=== PATIENT | male | born 1970 ===

== ENCOUNTER 2018-02-07 10:03 | Inpatient (IN) | payer OTHER ==
[~2018-02-07] VITALS: Ht 175.3 cm; Wt 98.4 kg
[~2018-02-07 10:03] MED LIST: AMOX500 PO; BISA5EC PO; HYDACE5; HYDACE5 PO; PENVK500 PO; PSEU30; RXAMOX500 PO; RXNEOPOLHC AD; RXPENVK250 PO; SULTRIDS PO
[2018-02-07 10:25] LABS: Calcium, Ionized (POC) 1.03 mmol/L (1.10-1.46); Chloride (POC) 101 mmol/L (98-108); Creatinine (POC) 1.1 mg/dL (0.8-1.3); Glucose (ISTAT POC) 128 mg/dL (70-99); Hemoglobin (POC) 16.7 g/dL (13.5-17.5); Potassium (POC) 3.6 mmol/L (3.5-5.5); Sodium (POC) 139 mmol/L (135-148); Total CO2 (POC) 24 mmol/L (21-32)
[2018-02-07 10:29] LABS: Hematocrit 46.8 % (37.0-53.0); Hemoglobin 15.6 g/dL (13.5-17.5); Mean Corpuscular HGB 26.6 pg (26.0-34.0); Mean Corpuscular HGB Conc 33.3 g/dL (31.5-36.5); Mean Corpuscular Volume 80 fL (80-100); Mean Platelet Volume 9.9 fL (9.1-12.4); Platelet Count 245 K/mm3 (150-400); RDW Coefficient Variation 14.6 % (11.7-14.2); RDW Standard Deviation 42.7 fL (35.1-46.3); Red Blood Cell Count 5.86 M/mm3 (4.30-5.90); White Blood Cell Count 8.64 K/mm3 (4.00-11.30)
[2018-02-07 10:42] LABS: International Normalized Ratio 1.05; Prothrombin Time Results 10.8 Sec (9.7-11.5)
[2018-02-07 10:53] LABS: Alanine Aminotransfer (ALT/SGP 28 U/L (12-78); Alk Phos 80 U/L (50-136); Anion Gap 8 mmol/L (6-16); Aspartate Aminotrans (AST/SGOT 20 U/L (12-37); Bilirubin, Total 0.7 mg/dL (0.1-1.0); Blood Urea Nitrogen 16 mg/dL (8-24); Bun/Creatinine Ratio 14.2 (12.0-20.0); CHOL/HDL RATIO 6.8; CO2, Blood 26 mmol/L (21-32); Calcium, Blood 8.5 mg/dL (8.5-10.1); Chloride, Blood 104 mmol/L (98-108); Cholesterol 191 mg/dL (50-200); Creatinine, Blood 1.13 mg/dL (0.60-1.20); Globulin, Blood 4.2 g/dL (2.2-4.0); Glomerular Filtration Rate >60 (60-); Glucose, Blood 122 mg/dL (70-99); HDL Cholesterol 28 mg/dL (>39); LDL/HDL RATIO 3.5; Low Density Lipoprotein Chol 99 mg/dL (0-110); Magnesium, Blood 2.3 mg/dL (1.6-2.4); Potassium, Blood 3.6 mmol/L (3.5-5.5); Sodium, Blood 138 mmol/L (136-145); Total Protein, Blood 8.2 g/dL (6.4-8.2); Triglycerides 322 mg/dL (30-160); Very Low Density Lipoprot Chol 64 mg/dL (6-32)
[2018-02-07 10:54] LABS: Troponin I <0.015 ng/mL (0.000-0.040)
[2018-02-07] MEDS ORDERED: Cialis20 MG PO (11:47)
[2018-02-07 12:19] LABS: Troponin I 24.2 ng/mL (0.000-0.040)
[2018-02-07] MEDS ORDERED: Flomax0.4 MG PO (12:20)
[2018-02-07 12:42] LABS: Creatine Kinase MB 80.2 ng/mL (0.0-3.6); Creatine Kinase MB Index 4.6 (0.0-4.0)
[2018-02-07 22:25] LABS: Creatine Kinase MB 232.3 ng/mL (0.0-3.6); Creatine Kinase MB Index 7.3 (0.0-4.0)
[2018-02-08 05:05] LABS: Anion Gap 7 mmol/L (6-16); Blood Urea Nitrogen 12 mg/dL (8-24); Bun/Creatinine Ratio 12.1 (12.0-20.0); CO2, Blood 24 mmol/L (21-32); Calcium, Blood 7.5 mg/dL (8.5-10.1); Chloride, Blood 107 mmol/L (98-108); Creatinine, Blood 0.99 mg/dL (0.60-1.20); Glomerular Filtration Rate >60 (60-); Glucose, Blood 122 mg/dL (70-99); Sodium, Blood 138 mmol/L (136-145)
[2018-02-08 05:47] LABS: CPK Creatine Kinase 1955 U/L (39-308)
[2018-02-08 06:06] LABS: Creatine Kinase MB 138.2 ng/mL (0.0-3.6); Creatine Kinase MB Index 7.1 (0.0-4.0)
[2018-02-08] MEDS ORDERED: TADA10TA PO (13:19)
[2018-02-08] MEDS ORDERED: TAMS.4ER PO (13:20)
[2018-02-08] MEDS ORDERED: ASPI325 PO (13:20)
[2018-02-08] MEDS ORDERED: ATOR40TA PO (13:21)
[2018-02-08] MEDS ORDERED: CLOP75 PO (13:22)
[2018-02-08] MEDS ORDERED: Prinivil5 MG PO (13:23)
[2018-02-08] MEDS ORDERED: METO25 PO (13:25)
== END 2018-02-08 13:57 | disposition home or self-care (01) | DRG 246 ==
LOC: ER 10:03 → ICUW 10:19
PROVIDERS: Emergency Medicine; Internal Medicine Interventional Cardiology
PROC: 027135Z Dilation of Coronary Artery, Two Arteries with Two Drug-eluting Intraluminal Devices, Percutaneous Approach (ICD-10-PCS; principal; 2018-02-07)
PROC: 5A2204Z Restoration of Cardiac Rhythm, Single (ICD-10-PCS; 2018-02-07)
PROC: B241ZZ3 Ultrasonography of Multiple Coronary Arteries, Intravascular (ICD-10-PCS; 2018-02-07)
PROC: B2111ZZ Fluoroscopy of Multiple Coronary Arteries using Low Osmolar Contrast (ICD-10-PCS; 2018-02-07)
DX: I21.19 ST elevation (STEMI) myocardial infarction involving other coronary artery of inferior wall (principal); I49.01 Ventricular fibrillation; I10 Essential (primary) hypertension; R73.03 Prediabetes; E78.5 Hyperlipidemia, unspecified; E78.1 Pure hyperglyceridemia; F10.21 Alcohol dependence, in remission; F17.210 Nicotine dependence, cigarettes, uncomplicated; Z88.8 Allergy status to other drugs, medicaments and biological substances
CPT/HCPCS: 36415; 80047; 80048; 80053; 80061; 82550; 82553; 83735; 84484; 85014; 85027; 85610; 85730; 86850; 86900; 86901; 92978; 92979; 93005; 93010; 93306; 93454; 99152; 99153; 99285-25; C1725; C1753; C1769; C1874; C1894; C9600; C9606; J0282; J1644; J2060; J2250; J3010; J3475; J7030; Q9967

== ENCOUNTER 2022-01-03 08:50 | Inpatient (IN) | payer OTHER ==
[~2022-01-03] VITALS: Ht 175.3 cm; Wt 90.1 kg
[~2022-01-03 08:50] MED LIST changes: +ASPI325 PO; +ATOR40TA PO; +CLOP75 PO; +Cialis20 MG PO; +Flomax0.4 MG PO; +METO25 PO; +Prinivil5 MG PO; +TADA10TA PO; +TAMS.4ER PO
[2022-01-03 09:13] LABS: Hematocrit 47.1 % (37.0-53.0); Hemoglobin 15.4 g/dL (13.5-17.5); Mean Corpuscular HGB 26.6 pg (26.0-34.0); Mean Corpuscular HGB Conc 32.7 g/dL (31.5-36.5); Mean Corpuscular Volume 81 fL (80-100); Mean Platelet Volume 10.3 fL (9.1-12.4); Platelet Count 309 K/mm3 (150-400); RDW Coefficient Variation 14.6 % (11.7-14.2); RDW Standard Deviation 42.4 fL (35.1-46.3); White Blood Cell Count 7.68 K/mm3 (4.00-11.30)
[2022-01-03 09:29] LABS: International Normalized Ratio 0.99; Prothrombin Time Results 10.4 Sec (9.7-11.5)
[2022-01-03 09:32] LABS: Magnesium, Blood 2.2 mg/dL (1.6-2.4)
[2022-01-03 09:33] LABS: Albumin, Blood 3.7 g/dL (3.4-5.0); Albumin/Globulin Ratio 0.9 (0.8-1.8); Bilirubin, Total 0.5 mg/dL (0.1-1.0); Calcium, Blood 8.6 mg/dL (8.5-10.1); Potassium, Blood 3.5 mmol/L (3.5-5.5); Total Protein, Blood 7.7 g/dL (6.4-8.2)
[2022-01-03 12:23] LABS: Influenza A, PCR NEGATIVE (NEGATIVE); Influenza B, PCR NEGATIVE (NEGATIVE); Resp Syncytial Virus, PCR NEGATIVE (NEGATIVE)
[2022-01-03 12:30] LABS: SARS-Cov-2 (COVID-19) PCR, MMC POSITIVE (NEGATIVE)
--- NOTE | 2022-01-03 13:00 | NUR ---
PT TO ICU ROOM 3 FROM [facility] @ 6676. PT ALERT AND ORIENTED, DENIES CHEST PAIN/SHORTNESS OF BREATH ON ARRIVAL. PT SINUS LOC WITH HR 40-60'S. BLOOD PRESSURE WNL. RIGHT RADIAL ACCESS SITE, 15 CC AIR. SITE SOFT/NONTENDER, NO HEMATOMA, DISTAL PULSES/PALLOR WNL. PT REPORTS NONCOMPLIANCE WITH MEDICATIONS D/T "LOSING INSURANCE" SEVERAL YEARS AGO. THIS NURSE OFFERED ASSISTANCE TO FILL OUT INSURANCE PAPERWORK, PT'S FIANCE STATES PT HAS "OHP" BUT THAT HE HASN'T FOLLOWED UP ON APPOINTMENTS. PT APPEARS UNINTERESTED IN MAKING LIFESTYLE/DIETARY CHANGES AT THIS TIME. DIETARY CONSULT PLACED. SEE ADMISSION ASSESSMENT.
[2022-01-03 13:05] LABS: BASOPHILS ABSOLUTE AUTO 0.01 K/mm3 (0.00-0.23); BASOPHILS PERCENT AUTO 0 % (0-2); EOSINOPHILS ABSOLUTE AUTO 0.01 K/mm3 (0.00-0.68); EOSINOPHILS PERCENT AUTO 0 % (0-6); Hematocrit 43.7 % (37.0-53.0); Hemoglobin 13.7 g/dL (13.5-17.5); IMMATURE GRAN ABSOLUTE AUTO 0.03 K/mm3 (0.00-0.10); IMMATURE GRAN PERCENT AUTO 0 % (0-1); LYMPHOCYTES ABSOLUTE AUTO 1.67 K/mm3 (0.84-5.20); LYMPHOCYTES PERCENT AUTO 21 % (21-46); MONOCYTES ABSOLUTE AUTO 0.48 K/mm3 (0.16-1.47); MONOCYTES PERCENT AUTO 6 % (4-13); Mean Corpuscular HGB 25.8 pg (26.0-34.0); Mean Corpuscular HGB Conc 31.4 g/dL (31.5-36.5); Mean Corpuscular Volume 83 fL (80-100); Mean Platelet Volume 10.5 fL (9.1-12.4); NEUTROPHILS ABSOLUTE AUTO 5.79 K/mm3 (1.96-9.15); NEUTROPHILS PERCENT AUTO 73 % (41-73); Platelet Count 264 K/mm3 (150-400); RDW Coefficient Variation 14.7 % (11.7-14.2); RDW Standard Deviation 44.5 fL (35.1-46.3); White Blood Cell Count 7.99 K/mm3 (4.00-11.30)
[2022-01-03 13:36] LABS: Albumin, Blood 3.4 g/dL (3.4-5.0); Albumin/Globulin Ratio 0.9 (0.8-1.8); Bilirubin, Total 0.5 mg/dL (0.1-1.0); Bun/Creatinine Ratio 16.5 (12.0-20.0); Calcium, Blood 8.1 mg/dL (8.5-10.1); Creatine Kinase MB Index 8.7 (0.0-4.0); Creatinine, Blood 0.91 mg/dL (0.60-1.20); Globulin, Blood 3.7 g/dL (2.2-4.0); Potassium, Blood 4.9 mmol/L (3.5-5.5); Total Protein, Blood 7.1 g/dL (6.4-8.2)
--- NOTE | 2022-01-03 15:39 | NUR ---
PT LOC WITH HR 33-60. PT NONSYMPTOMATIC. DR. SNYDER AWARE OF PT'S BRADYCARDIA. ALL OTHER VSS. RIGHT RADIAL SITE WNL, CLEAR DRESSING APPLIED, ARMBOARD IN PLACE.
--- NOTE | 2022-01-03 18:15 | NUR ---
SHIFT SUMMARY NO ACUTE CHANGES SINCE ADMISSION TO ICU. PT REMAINS ALERT AND ORIENTED, CONTINUES TO DENY CHEST PAIN OR SHORTNESS OF BREATH. CLEAR DRESSING TO RIGHT RADIAL SITE, SITE REMAINS SOFT, NONTENDER, NO EVIDENCE OF BLEEDING, DISTAL PULSES/PALLOR WNL, PT DENIES NUMBNESS/TINGLING, ARMBOARD REMAINS IN PLACE. PT CONTINUES TO BE LOC WITH HR 30-50'S. PT ABLE TO INDEPENDENTLY AMBULATE TO USE RESTROOM, NO COMPLAINT OF DIZZINESS OR CHEST PAIN. PT'S SIGNIFICANT OTHER AT BEDSIDE. SEE PREVIOUS NOTES FROM THIS SHIFT. WILL REPORT TO ONCOMING NURSE.
[2022-01-03 18:40] LABS: U Methamphetamine Screen DETECTED; U Opiates Screen DETECTED
[2022-01-03 18:41] LABS: U Amphetamine Screen Not Detected; U Barbituate Screen Not Detected; U Benzodiazapine Screen Not Detected; U Buprenorphine Screen Not Detected; U Cannabinoids Screen Not Detected; U Cocaine Screen Not Detected; U Methadone Screen Not Detected; U Oxycodone Screen Not Detected; U Phencyclidine Screen Not Detected; U Propoxyphene Screen Not Detected
--- NOTE | 2022-01-03 19:05 | NUR ---
Assumed care. Report received from nelida RN. Pt resting in bed ATT, on room air. IV access in L and R/ACs, NS at 125 ml/hr. Pt denies chest pain/SOB/nausea. No acute needs, will continue to monitor.
[2022-01-04 03:45] LABS: BASOPHILS ABSOLUTE AUTO 0.01 K/mm3 (0.00-0.23); BASOPHILS PERCENT AUTO 0 % (0-2); EOSINOPHILS ABSOLUTE AUTO 0.06 K/mm3 (0.00-0.68); EOSINOPHILS PERCENT AUTO 1 % (0-6); Hematocrit 38.1 % (37.0-53.0); Hemoglobin 12.3 g/dL (13.5-17.5); IMMATURE GRAN ABSOLUTE AUTO 0.03 K/mm3 (0.00-0.10); IMMATURE GRAN PERCENT AUTO 0 % (0-1); LYMPHOCYTES ABSOLUTE AUTO 2.35 K/mm3 (0.84-5.20); LYMPHOCYTES PERCENT AUTO 30 % (21-46); MONOCYTES ABSOLUTE AUTO 0.68 K/mm3 (0.16-1.47); MONOCYTES PERCENT AUTO 9 % (4-13); Mean Corpuscular HGB 26.2 pg (26.0-34.0); Mean Corpuscular HGB Conc 32.3 g/dL (31.5-36.5); Mean Corpuscular Volume 81 fL (80-100); Mean Platelet Volume 10.2 fL (9.1-12.4); NEUTROPHILS ABSOLUTE AUTO 4.77 K/mm3 (1.96-9.15); NEUTROPHILS PERCENT AUTO 60 % (41-73); Platelet Count 237 K/mm3 (150-400); RDW Coefficient Variation 14.7 % (11.7-14.2); RDW Standard Deviation 43.5 fL (35.1-46.3); Red Blood Cell Count 4.69 M/mm3 (4.30-5.90)
[2022-01-04 04:04] LABS: Alanine Aminotransfer (ALT/SGP 63 U/L (12-78); Albumin/Globulin Ratio 0.9 (0.8-1.8); Alk Phos 60 U/L (50-136); Anion Gap 7 mmol/L (6-16); Aspartate Aminotrans (AST/SGOT 219 U/L (12-37); Bilirubin, Total 0.6 mg/dL (0.1-1.0); Blood Urea Nitrogen 17 mg/dL (8-24); Bun/Creatinine Ratio 20.3 (12.0-20.0); CHOL/HDL RATIO 5.3; CO2, Blood 26 mmol/L (21-32); Calcium, Blood 7.9 mg/dL (8.5-10.1); Chloride, Blood 107 mmol/L (98-108); Cholesterol 128 mg/dL (50-200); Creatinine, Blood 0.84 mg/dL (0.60-1.20); Globulin, Blood 3.2 g/dL (2.2-4.0); Glomerular Filtration Rate 105 (60-); Glucose, Blood 134 mg/dL (70-99); HDL Cholesterol 24 mg/dL (>39); LDL/HDL RATIO 1.8; Low Density Lipoprotein Chol 42 mg/dL (0-110); Potassium, Blood 3.9 mmol/L (3.5-5.5); Sodium, Blood 140 mmol/L (136-145); Total Protein, Blood 6.2 g/dL (6.4-8.2); Triglycerides 308 mg/dL (30-160); Very Low Density Lipoprot Chol 61 mg/dL (6-32)
--- NOTE | 2022-01-04 06:41 | NUR ---
Shift summary. Pt rested in bed throughout the night. Occasionally bradycardic down into the 30s, pt asymptomatic, denies SOB/chest pain or other symptoms. No other acute events overnight. VS stable, see assessment for further details. Will continue to monitor and report off to dayshift RN.
--- NOTE | 2022-01-04 08:08 | NUR ---
AM NOTE... ASSUMED CARE OF PT AT 0700, THE PT IS A&Ox4 AND WAS ADMITTED FOR A STEMI WITH PCI DONE YESTERDAY. THE PT HAS BEEN HAVING MULTIPLE EPISODES OF BRADYCARDIA WITH HR DOWN TO THE LOW 30'S WITH >2 SECOND PAUSES, THE PT STATED THAT HE HAS BEEN HAVING CHEST PAIN/"SQUEEZING PRESSURE" WITH THESE EPISODES. THE PT'S BP IS SOFT WITH SBPs IN THE LOW 90'S. NO EDEMA NOTED ON ASSESSMENT. THE PT'S RIGHT RADIAL SITE IS C/D/I NO SWELLING OR HEMATOMA NOTED. THE PT IS ON RA WITH O2 SATS >90% L/S CLEAR T/O DIM IN THE BASES WITH A DRY NON-PRODUCTIVE COUGH. BT PRESENT AND HYPERACTIVE, ABD IS SOFT AND NONTENDER TO PALPATION. WILL CONTINUE TO MONITOR.
--- NOTE | 2022-01-04 11:15 | NUR ---
PT UPDATE.... THE PT CONTINUE TO HAVE EPISODES OF BRADYCARDIA WITH >2 SECOND PAUSES, THE PT IS C/O OF CHEST PAIN AND SHORTNESS OF BREATH DURING THESE EPISODES, THE PT WAS PLACED ON 2L NC TO HELP WITH THE SHORTNESS OF BREATH EPISODES. THE PT IS CURRENTLY GETTING AN ECHO DONE IN THE ROOM. WILL CONTINUE TO MONITOR.
--- NOTE | 2022-01-04 14:06 | NUR ---
PT UPDATE... THE PT HAS BEEN SUSTAINING A HR IN THE 40'S THE PT IS NOT SYMPTOMATIC UNTIL HE DROPS DOWN TO THE 30'S. THE SPEECH THERAPY TEACHER WAS NOTIFIED AND PER SPEECH THERAPY TEACHER GIVE 0.5 ATROPINE IF THE PT'S HR SUSTAINES A HR IN THE 30'S AND IS SYMPTOMATIC. WILL CONTINUE TO MONITOR.
--- NOTE | 2022-01-04 17:21 | NUR ---
SHIFT SUMMARY... NO ACUTE NEGATIVE CHANGES SINCE PREVIOUS NOTES, THE PT'S HR HAS IMPROVED TO SUSTAINING THE 50'S-60'S BUT STILL DIPPING DOWN INTO THE 30'S-40'S. THE PT'S BP HAS BEEN STABLE T/O THIS SHIFT. THE PT ONLY C/O OF CHEST PAIN/PRESSURE WHEN HIS HR IS IN THE 20'S-30'S. THE PT HAS BEEN ABLE TO USE THE URINAL AT THE BEDSIDE AND GOT UP TO THE TOILET TO HAVE A BM THIS SHIFT INDEPENDENTLY. CALL LIGHT IN REACH WILL CONTINUE TO MONITOR UNTIL REPORT IS GIVEN TO ONCOMING RN.
--- NOTE | 2022-01-04 19:15 | NUR ---
Assumed care. Report received from dayshift RN. Pt resting in bed ATT. Alert and oriented, on room air. VS stable, no acute needs at this time. Pt denies SOB/chest pain/nausea. Will continue to monitor.
[2022-01-05 03:21] LABS: Hematocrit 37.8 % (37.0-53.0); Hemoglobin 12.5 g/dL (13.5-17.5); Mean Corpuscular HGB 26.5 pg (26.0-34.0); Mean Corpuscular HGB Conc 33.1 g/dL (31.5-36.5); Mean Corpuscular Volume 80 fL (80-100); Mean Platelet Volume 10.5 fL (9.1-12.4); Platelet Count 240 K/mm3 (150-400); RDW Coefficient Variation 14.6 % (11.7-14.2); RDW Standard Deviation 42.8 fL (35.1-46.3); Red Blood Cell Count 4.72 M/mm3 (4.30-5.90); White Blood Cell Count 7.93 K/mm3 (4.00-11.30)
[2022-01-05 03:47] LABS: Albumin, Blood 3.1 g/dL (3.4-5.0); Albumin/Globulin Ratio 0.9 (0.8-1.8); Bilirubin, Total 1.1 mg/dL (0.1-1.0); Bun/Creatinine Ratio 14.2 (12.0-20.0); Calcium, Blood 8.4 mg/dL (8.5-10.1); Creatinine, Blood 0.84 mg/dL (0.60-1.20); Globulin, Blood 3.4 g/dL (2.2-4.0); Potassium, Blood 3.3 mmol/L (3.5-5.5); Total Protein, Blood 6.5 g/dL (6.4-8.2)
--- NOTE | 2022-01-05 06:31 | NUR ---
Shift summary. Pt rested in bed through shift. At approximately 0505 this morning, pt had a six second cardiac pause on monitor. Pt reported no associated symptoms. Pacer pads placed as a precaution. VS otherwise stable, see assessment for further details. Will continue to monitor and report off to dayshift RN.
--- NOTE | 2022-01-05 07:45 | NUR ---
ASSUMED CARE: REPORT RECEIVED FROM CANDI Chapman RN. ASSUMED CARE OF THIS PT AT APPROX 0700. ON ASSESSMENT, THE PT IS AWAKE, ORIENTED TO ALL. HE DENIES CHEST PAIN OR OTHER DISCOMFORTS. LS CLEAR T/O, PT ON RA W/ O2 SATS > 95%. MONITOR SHOWS SB-SR W/ HR 40-60s, BP STABLE. PT DENIES GI COMPLAINTS, HAVING REGULAR BMs PER REPORT. VOIDS URINE W/O DIFFICULTY. SKIN CONDITION OVERALL INTACT, PT REPOSITIONS SELF W/O DIFFICULTY. RIGHT RADIAL PUNCTURE SITE S/P CARDIAC ANGIOGRAM WNL - NO BLEEDING, BRUISING OR HEMATOMA FORMATION NOTED, PT VERBALIZES UNDERSTANDING OF RADIAL SITE PRECAUTIONS. WILL CONTINUE TO MONITOR & UPDATE NEEDED.
--- NOTE | 2022-01-05 11:20 | NUR ---
Diana SNYDER & YANIV: PROVIDERS HAVE BOTH BEEN AT BEDSIDE THIS AM TO EVAL PT. DR SNYDER HAS SEEN THE PT's 6 SECOND PAUSE DURING RADIO JOURNALIST & HAS NOTIFIED THE PT THAT HE WILL NEED TO STAY AT LEAST ANOTHER 24 HRS FOR MONITORING R/T THIS, THE PT IS AGREEABLE. PROVIDER IS CONSIDERING DISCONTINUING THE PT's METOPROLOL & LISINOPRIL THE MEDS HAVE BEEN HELD R/T PT's HYPOTENSION. ORDERS PLACED FOR KCL REPLETION FOR POTASSIUM 3.3. DR PURVIS HAS SEEN THE PT THIS AM & HAS BEEN UPDATED BY THIS RN ON DR SNYDER's PLAN. ORDERS TO D/C PT's AC&HS CBG CHECKS THAT HAVE ALL BEEN WNL & NO INSULIN COVERAGE ORDERED.
--- NOTE | 2022-01-05 16:23 | NUR ---
TRANSFER TO PCU: REPORT HAS BEEN GIVEN TO MING Bravo RN TO ASSUME CARE. PT TRANSFERRED TO ROOM PCU-16 AT APPROX 1610. CHART, MEDICATIONS & ALL BELONGINGS HAVE BEEN TAKEN W/ PT AT THIS TIME.
--- NOTE | 2022-01-05 16:38 | NUR ---
CARE ASSUMPTION/ARRIVAL TO PCU/SHIFT SUMMARY THIS RN ASSUMED CARE FROM [facility] ICU AT APPROX 1410. PATIENT ARRIVED TO PCU VIA WHEELCHAIR AND TRANSFERED TO PCU BED INDEPDENDENTLY. PATIENT IS ALERT AND ORIENTED X4. NEURO INTACT. PATIENT REPORTS NO PAIN. PATIENT REPORTS NO CHEST PAIN/PRESSURE. STRONG RADIAL AND PEDIS PULSES BILATERALLY. PATIENT REPORTS NO SHORTNESS OF BREATH. LUNG SOUNDS CLEAR. PATIENT DOES HAVE A NONPRODUCTIVE COUGH. PATIENT IS INDEPDENT IN THE ROOM, AND THIS RN EDUCATED THE PATIENT TO CALL IF HE NEEDS ASSISTANCE OR BECOMES LIGHTHEADED, CHEST PAIN, OR ANY CHANGES. PATIENT VERABLIZED UNDERSTANDING. PATIENT ABD IS NONTENDER AND ACTIVE. NO SKIN ISSUES NOTED. RIGHT RADIAL SITE S/P ANGIO IS CLEAN DRY AND INTACT WITH NO BRUISING BLEEDING OR SWELLING. VSS. TELE SINUS LOC 57. PLAN OF CARE UP TO DATE. CALL LIGHT WITHIN REACH.
--- NOTE | 2022-01-06 06:18 | NUR ---
SHIFT SUMMARY PT. RESTED WELL THROUGHOUT THE NIGHT AND HAD NO COMPLAINTS. PT. WAS BRADYCARDIC THROUGHOUT THE NIGHT MAINTAINING HR BETWEEN 40-70 BUT HAD TWO NON-SUSTAINED BRADYCARDIC EPISODES TO THE 30S AND HAD MULTIPLE CARDIAC PAUSES WHICH LASTED LESS THAN 3 SECONDS. PT. WAS ASYMPTOMATIC TO BRADYCARDIA AND PAUSES. PT. STILL REMAINS ON COVID ISOLATION BUT IS MOSTLY INDEPENDENT IN ROOM, ONLY CALLING OUT IF HE NEEDS SOMETHING BROUGHT TO HIM. PT. RESTING COMFORTABLY AT THIS TIME.
--- NOTE | 2022-01-06 11:59 | NUR ---
0800 TO 1200 ASSESSMENT PATIENT AWAKE THIS AM AND HAS BEEN UP IN ROOM MOVING AROUND INDEPENDENTLY. HE IS EAGER TO GO HOME. VS STABLE HOWEVER HIS PULSE IS STILL 50-60'S SINUS BRADYCARDIA. NO ACUTE PAIN OR DISCOMFORT AT THIS TIME. DR SNYDER CAME TO ROOM TO ASSESS HIM TODAY AND DISCUSSED WITH HIM TO GO HOME TOMORROW. IS TWO IV'S BILAT ARE FLUSHED AND SALINE LOCKED. EKG COMPLETED THIS AM. WILL CONTINUE TO ASSESS AND CARE FOR PATIENT DIRECTED.
--- NOTE | 2022-01-07 05:43 | NUR ---
SHIFT SUMMARY PT RESTED WELL THROUGH THE NIGHT. ALERT AND ORIENTED, ABLE TO MAKE NEEDS KNOWN. COOPERATIVE WITH PLAN OF CARE. SATS >95% ON ROOM AIR. TELE READS SINUS LOC - LOWEST READING OVERNIGHT DOWN TO 40 - PT ASYMPTOMATIC. ENTIRELY INDEPENDENT IN THE ROOM. PT READY TO DC HOME TODAY. SOUNDS LIKE PER MD NOTES, PT MAY DC WITH ZIO PATCH. VSS. NO PAIN. CALL LIGHT WITHIN REACH, BED IN LOWEST POSITION. WILL CONTIUE TO MONITOR.
[2022-01-07 07:51] LABS: Albumin, Blood 3.6 g/dL (3.4-5.0); Anion Gap 8 mmol/L (6-16); Blood Urea Nitrogen 17 mg/dL (8-24); Bun/Creatinine Ratio 17.8 (12.0-20.0); CO2, Blood 20 mmol/L (21-32); Calcium, Blood 8.9 mg/dL (8.5-10.1); Chloride, Blood 112 mmol/L (98-108); Creatinine, Blood 0.96 mg/dL (0.60-1.20); Glomerular Filtration Rate 95 (60-); Glucose, Blood 121 mg/dL (70-99); Phosphorus, Blood 3.2 mg/dL (2.5-4.9); Potassium, Blood 4.1 mmol/L (3.5-5.5); Sodium, Blood 140 mmol/L (136-145)
[2022-01-07] MEDS ORDERED: ASPI81CH PO (11:18)
[2022-01-07] MEDS ORDERED: ATOR80 PO (11:19)
[2022-01-07] MEDS ORDERED: Lisinopril2.5 MG PO (11:20)
[2022-01-07] MEDS ORDERED: TICA90TA PO (11:20)
[2022-01-07] MEDS ORDERED: JARDIANCE10 MG PO (11:21)
[2022-01-08] MEDS ORDERED: METF500 PO (12:16)
[2022-01-08] MEDS ORDERED: BRILINTA90 M2 PO (12:18)
[2022-01-08] MEDS ORDERED: CLOP75 PO (12:45)
[2022-01-08] MEDS ORDERED: CLOPIDOGREL300 M1 PO (12:46)
== END 2022-01-07 12:29 | disposition home or self-care (01) | DRG 250 ==
LOC: ER 08:50 → ICUW 09:12 → ICUE 09:12 → PCU 01-05 16:08
PROVIDERS: Emergency Medicine; Internal Medicine; ADMIT Internal Medicine Interventional Cardiology
PROC: 02703ZZ Dilation of Coronary Artery, One Artery, Percutaneous Approach (ICD-10-PCS; principal; 2022-01-03)
PROC: 4A023N7 Measurement of Cardiac Sampling and Pressure, Left Heart, Percutaneous Approach (ICD-10-PCS; 2022-01-03)
PROC: B2111ZZ Fluoroscopy of Multiple Coronary Arteries using Low Osmolar Contrast (ICD-10-PCS; 2022-01-03)
PROC: 02C03ZZ Extirpation of Matter from Coronary Artery, One Artery, Percutaneous Approach (ICD-10-PCS; 2022-01-03)
DX: I21.19 ST elevation (STEMI) myocardial infarction involving other coronary artery of inferior wall (principal); I49.01 Ventricular fibrillation; U07.1 COVID-19; F15.10 Other stimulant abuse, uncomplicated; I25.10 Atherosclerotic heart disease of native coronary artery without angina pectoris; E11.51 Type 2 diabetes mellitus with diabetic peripheral angiopathy without gangrene; E78.5 Hyperlipidemia, unspecified; I10 Essential (primary) hypertension; E11.65 Type 2 diabetes mellitus with hyperglycemia; E87.6 Hypokalemia; E78.1 Pure hyperglyceridemia; N40.0 Benign prostatic hyperplasia without lower urinary tract symptoms; R00.1 Bradycardia, unspecified; E66.9 Obesity, unspecified; Z68.30 Body mass index [BMI] 30.0-30.9, adult; Z28.21 Immunization not carried out because of patient refusal; F41.9 Anxiety disorder, unspecified; F17.210 Nicotine dependence, cigarettes, uncomplicated; Z72.89 Other problems related to lifestyle; Z95.5 Presence of coronary angioplasty implant and graft; Z88.8 Allergy status to other drugs, medicaments and biological substances; Z79.899 Other long term (current) drug therapy; Z71.6 Tobacco abuse counseling; Z71.51 Drug abuse counseling and surveillance of drug abuser
CPT/HCPCS: 0241U; 36415; 71045; 76937; 80053; 80061; 80069; 82550; 82553; 82947; 83036; 83735; 84132; 84484; 85025; 85027; 85347; 85610; 85730; 86850; 86900; 86901; 92920; 92941; 92978; 93005; 93010; 93242; 93458; 96374; 96375; 99152; 99153; 99285-25; A9270; C1725; C1753; C1757; C1769; C1887; C1894; C8929; J0461; J1644; J1650; J2250; J2270; J2370; J2405; J3010; J3246; J7030; J7040; Q9957; Q9967